=== PATIENT | female | born 1960 | race Hispanic/Latino ===

== ENCOUNTER 2016-11-09 18:37 | Emergency (ER) | payer MEDICAID ==
[2016-11-09 18:37] VITALS: BMI 30.4
[2016-11-09 18:45] VITALS: BP 121/72; PULSE 62; RESP 16; TEMP 98.9; O2SAT 94
[2016-11-09] MEDS ORDERED: Tobramycin 0.3% OPHT SOLN OS STA (18:54)
[2016-11-09] MEDS ORDERED: TDAP Vaccine 0.5 mL Syr IM ONE (18:55)
--- NOTE | 2016-11-09 18:58 | ED PDOC ---
Arrival/HPI - General Chief Complaint: Eye Problem Time Seen by Provider: 11/09/16 18:39 Historian: Patient - History of Present Illness Narrative History of Present Illness (Text): 11/09/16 18:55 56yo female present with complaint of right eye redness, tearing, pain and photophobia x 3days. Notes that symptoms started after she accidentally poked her eye with a kanwal pin. states she came to ED today because of the persistent pain. Denies visual acuity change. Note up to date with her TD booster. Past Medical History - Provider Review Nursing Documentation Reviewed: Yes - Past History Past History: Non-Contributing - Infectious Disease Hx of Infectious Diseases: None - Tetanus Immunization Tetanus Immunization: Unknown - Reproductive Menopause: Yes - Cardiac Hx Hypertension: Yes Hx Pacemaker: No - Pulmonary Hx Chronic Obstructive Pulmonary Disease (COPD): Yes - Neurological Hx Paralysis: No - HEENT Hx HEENT Disorder: No - Renal Hx Renal Disorder: No - Endocrine/Metabolic Hx Endocrine Disorders: No - Hematological/Oncological Hx Blood Transfusions: No Hx Blood Transfusion Reaction: No - Integumentary Hx Dermatological Disorder: No - Musculoskeletal/Rheumatological Hx Musculoskeletal Disorders: Yes Other/Comment: Back problems - Gastrointestinal Hx Gastrointestinal Disorders: No - Genitourinary/Gynecological Hx Genitourinary Disorders: No - Psychiatric Hx Depression: Yes Hx Emotional Abuse: No Hx Physical Abuse: No Hx Substance Use: No - Surgical History Other/Comment: Laminectomy - Anesthesia Hx Anesthesia: Yes Hx Anesthesia Reactions: No Hx Malignant Hyperthermia: No - Suicidal Assessment Feels Threatened In Home Enviroment: No Family/Social History - Physician Review Nursing Documentation Reviewed: Yes Family/Social History: Unknown Family HX Smoking Status: Heavy Smoker > 10 Cigarettes Daily Hx Alcohol Use: No Hx Substance Use: No Hx Substance Use Treatment: No Allergies/Home Meds Allergies/Adverse Reactions: Allergies No Known Allergies Allergy (Verified 11/09/16 18:39) Home Medications: Home Meds Medication Instructions Recorded Confirmed Morphine [Morphine Extended 100 mg PO BID 01/10/15 11/09/16 Release Tab] Bisoprolol/HCTZ [Ziac 10-6.25 mg] 1 tab PO QAM 03/11/15 11/09/16 Tolterodine [Detrol] 2 mg PO BID 03/11/15 11/09/16 Omeprazole [Omeprazole] 40 mg PO DAILY 11/09/16 11/09/16 Oxycodone HCl [Roxicodone] 1 tab PO Q4 PRN 11/09/16 11/09/16 Review of Systems - Physician Review All systems were reviewed & negative as marked: Yes - Review of Systems Constitutional: Normal Eyes: Photophobia, Eye Pain (Right eye) ENT: Normal Respiratory: Normal Cardiovascular: Normal Gastrointestinal: Normal Genitourinary Female: Normal Musculoskeletal: Normal Skin: Normal Neurological: Normal Endocrine: Normal Hemo/Lymphatic: Normal Psychiatric: Normal Physical Exam Vital Signs Reviewed: Yes Vital Signs Temp Pulse Resp BP Pulse Ox 11/09/16 18:41 98.9 F 62 16 121/72 94 L Temperature: Afebrile Blood Pressure: Normal Pulse: Regular Respiratory Rate: Normal Appearance: Positive for: Well-Appearing, Non-Toxic, Comfortable Pain Distress: None Mental Status: Positive for: Alert and Oriented X 3 - Systems Exam Head: Present: Atraumatic, Normocephalic Pupils: Present: PERRL Extroacular Muscles: Present: EOMI Conjunctiva: Present: Icteric (Red - right eye), Other (Small florescin uptake noted on cnetral cornea) Mouth: Present: Moist Mucous Membranes Neck: Present: Normal Range of Motion Respiratory/Chest: Present: Clear to Auscultation, Good Air Exchange. No: Respiratory Distress, Accessory Muscle Use Cardiovascular: Present: Regular Rate and Rhythm, Normal S1, S2. No: Murmurs Abdomen: Present: Normal Bowel Sounds. No: Tenderness, Distention, Peritoneal Signs Back: Present: Normal Inspection Upper Extremity: Present: Normal Inspection. No: Cyanosis, Edema Lower Extremity: Present: Normal Inspection. No: Edema Neurological: Present: GCS=15, CN II-XII Intact, Speech Normal Skin: Present: Warm, Dry, Normal Color. No: Rashes Psychiatric: Present: Alert, Oriented x 3, Normal Insight, Normal Concentration Disposition/Present on Arrival - Present on Arrival Any Indicators Present on Arrival: No History of DVT/PE: No History of Uncontrolled Diabetes: No Urinary Catheter: No History of Decub. Ulcer: No History Surgical Site Infection Following: None - Disposition Have Diagnosis and Disposition been Completed?: Yes Diagnosis: Corneal abrasion Disposition: HOME/ ROUTINE Disposition Time: 19:00 Patient Plan: Discharge Condition: STABLE Discharge Instructions (ExitCare): Corneal Abrasion (ED) Additional Instructions: Follow up with your Doctor/Therapeutic Massage Technician Return to ED for any new or worsening symptoms Referrals: Rick Navarrete MD [Staff Provider] - Follow up with primary
== END 2016-11-09 19:27 | disposition home or self-care (01) ==
LOC: ED 18:37
DX: S05.01XA Injury of conjunctiva and corneal abrasion without foreign body, right eye, initial encounter (principal); W22.8XXA Striking against or struck by other objects, initial encounter; Z23 Encounter for immunization

== ENCOUNTER 2017-05-18 18:41 | Emergency (ER) | payer MEDICAID ==
--- NOTE | 2017-05-18 18:54 | ED PDOC ---
Arrival/HPI - General Time Seen by Provider: 05/18/17 18:44 Historian: Patient - History of Present Illness Narrative History of Present Illness (Text): 05/18/17 18:51 57yo female with PMHx of COPD biba for complaint of nonproductive cough and SOB. She reports 4days history of cough, cold symptoms. states her PMD called in Promethazine for her to day. Her albuterol inhaler broke. She is also a cigarette smoker. Denies sick contact, travel, fever. She have never been intubated. She is not steroid dependent. Never admitted for COPD. Past Medical History - Provider Review Nursing Documentation Reviewed: Yes - Past History Past History: Non-Contributing - Infectious Disease Hx of Infectious Diseases: None - Tetanus Immunization Tetanus Immunization: Unknown - Cardiac Hx Hypertension: Yes Hx Pacemaker: No - Pulmonary Hx Chronic Obstructive Pulmonary Disease (COPD): Yes - Neurological Hx Paralysis: No - HEENT Hx HEENT Disorder: No - Renal Hx Renal Disorder: No - Endocrine/Metabolic Hx Endocrine Disorders: No - Hematological/Oncological Hx Blood Transfusions: No Hx Blood Transfusion Reaction: No - Integumentary Hx Dermatological Disorder: No - Musculoskeletal/Rheumatological Hx Musculoskeletal Disorders: Yes Other/Comment: Back problems - Gastrointestinal Hx Gastrointestinal Disorders: No - Genitourinary/Gynecological Hx Genitourinary Disorders: No - Psychiatric Hx Depression: Yes Hx Emotional Abuse: No Hx Physical Abuse: No Hx Substance Use: No - Surgical History Other/Comment: Laminectomy - Anesthesia Hx Anesthesia: Yes Hx Anesthesia Reactions: No Hx Malignant Hyperthermia: No - Suicidal Assessment Feels Threatened In Home Enviroment: No Family/Social History - Physician Review Nursing Documentation Reviewed: Yes Family/Social History: Unknown Family HX Smoking Status: Heavy Smoker > 10 Cigarettes Daily Hx Alcohol Use: No Hx Substance Use: No Hx Substance Use Treatment: No Allergies/Home Meds Allergies/Adverse Reactions: Allergies No Known Allergies Allergy (Verified 11/09/16 18:39) Home Medications: Home Meds Medication Instructions Recorded Confirmed Morphine [Morphine Extended 100 mg PO BID 01/10/15 11/09/16 Release Tab] Bisoprolol/HCTZ [Ziac 10-6.25 mg] 1 tab PO QAM 03/11/15 11/09/16 Tolterodine [Detrol] 2 mg PO BID 03/11/15 11/09/16 Omeprazole [Omeprazole] 40 mg PO DAILY 11/09/16 11/09/16 Oxycodone HCl [Roxicodone] 1 tab PO Q4 PRN 11/09/16 11/09/16 Review of Systems - Physician Review All systems were reviewed & negative as marked: Yes - Review of Systems Constitutional: Normal Eyes: Normal ENT: Normal Respiratory: SOB, Cough. absent: Sputum, Wheezing Cardiovascular: Normal Gastrointestinal: Normal Genitourinary Female: Normal Musculoskeletal: Normal Skin: Normal Neurological: Normal Endocrine: Normal Hemo/Lymphatic: Normal Psychiatric: Normal Physical Exam Vital Signs Reviewed: Yes Vital Signs Temp Pulse Resp BP Pulse Ox 05/18/17 20:57 98.2 F 68 18 130/82 98 05/18/17 19:15 98.1 F 69 18 120/82 99 05/18/17 18:57 98.1 F 69 18 120/82 99 Temperature: Afebrile Blood Pressure: Normal Pulse: Regular Respiratory Rate: Normal Appearance: Positive for: Well-Appearing, Non-Toxic, Comfortable Pain Distress: None Mental Status: Positive for: Alert and Oriented X 3 - Systems Exam Head: Present: Atraumatic, Normocephalic Pupils: Present: PERRL Extroacular Muscles: Present: EOMI Conjunctiva: Present: Normal Mouth: Present: Moist Mucous Membranes Neck: Present: Normal Range of Motion Respiratory/Chest: Present: Clear to Auscultation, Good Air Exchange, Wheezes ( Mild expiratory wheeze at the bases). No: Respiratory Distress, Accessory Muscle Use, Decreased Breath Sounds, Retracting, Rhonchi Cardiovascular: Present: Regular Rate and Rhythm, Normal S1, S2. No: Murmurs Abdomen: Present: Normal Bowel Sounds. No: Tenderness, Distention, Peritoneal Signs Back: Present: Normal Inspection Upper Extremity: Present: Normal Inspection. No: Cyanosis, Edema Lower Extremity: Present: Normal Inspection. No: Edema Neurological: Present: GCS=15, CN II-XII Intact, Speech Normal Skin: Present: Warm, Dry, Normal Color. No: Rashes Psychiatric: Present: Alert, Oriented x 3, Normal Insight, Normal Concentration Medical Decision Making ED Course and Treatment: 05/18/17 20:20 On re evaluation pt notes she feels much better. She was not hypoxic in ED. she was talking in full sentence without distress. Lung was CTA b/l. Pt was counselled on smoking cessation Lab was unremarkable. CXR NAD Pt will be DC home with a rx of Albuterol and prednisone. Referred to her PMD. TRT ED for any new or worsening symptoms. - Lab Interpretations Lab Results: 05/18/17 19:35 05/18/17 19:35 Lab Results 05/18/17 19:35: POC Glucose (mg/dL) 118 H 05/18/17 19:35: Sodium 140, Potassium 3.5 L, Chloride 105, Carbon Dioxide 29, Anion Gap 9 L, BUN 13, Creatinine 0.9, Est GFR ( Amer) > 60, Est GFR (Non -Af Amer) > 60, Random Glucose 125 H, Calcium 9.2, Total Bilirubin 0.2, AST 22, ALT 25, Alkaline Phosphatase 52, Total Protein 6.4, Albumin 3.7, Globulin 2.7, Albumin/Globulin Ratio 1.4 05/18/17 19:35: WBC 6.6, RBC 4.69, Hgb 16.0, Hct 47.4, MCV 101.1, MCH 34.1, MCHC 33.8, RDW 14.5, Plt Count 119 L, MPV 11.1 H, Gran % 66.0, Lymph % (Auto) 25.2, [place] % (Auto) 6.1 H, Eos % (Auto) 2.4, Baso % (Auto) 0.3, Gran # 4.34, Lymph # 1.7, [place] # 0.4, Eos # 0.2, Baso # 0.02 - RAD Interpretation Radiology Orders: 05/18/17 19:16 CHEST PORTABLE [RAD] Stat - Medication Orders Current Medication Orders: Discontinued Medications Albuterol/Ipratropium (Duoneb 3 Mg/0.5 Mg (3 Ml) Ud) 3 ml IH STAT STA Stop: 05/18/17 19:15 Last Admin: 05/18/17 19:46 Dose: 3 ml Albuterol/Ipratropium (Duoneb 3 Mg/0.5 Mg (3 Ml) Ud) 3 ml IH STAT STA Stop: 05/18/17 19:41 Last Admin: 05/18/17 20:10 Dose: 3 ml Albuterol/Ipratropium (Duoneb 3 Mg/0.5 Mg (3 Ml) Ud) 3 ml IH STAT STA Stop: 05/18/17 20:01 Last Admin: 05/18/17 20:38 Dose: 3 ml Azithromycin (Zithromax) 500 mg PO STAT STA PRN Reason: Protocol Stop: 05/18/17 20:29 Last Admin: 05/18/17 20:41 Dose: 500 mg Methylprednisolone (Solu-Medrol) 125 mg IVP STAT STA Stop: 05/18/17 19:16 Last Admin: 05/18/17 19:45 Dose: 125 mg IVP Administration Document 05/18/17 19:45 IT (Rec: 05/18/17 19:45 IT [id number]) Charges for Administration # of IVP Administrations 1 Disposition/Present on Arrival - Present on Arrival Any Indicators Present on Arrival: No History of DVT/PE: No History of Uncontrolled Diabetes: No Urinary Catheter: No History Surgical Site Infection Following: None - Disposition Have Diagnosis and Disposition been Completed?: Yes Diagnosis: COPD exacerbation Disposition: HOME/ ROUTINE Disposition Time: 21:00 Condition: STABLE Discharge Instructions (ExitCare): COPD (Chronic Obstructive Pulmonary Disease ) (ED) Additional Instructions: Follow up with your doctor Return to ED for any new or worsening symptoms Prescriptions: Albuterol HFA [Ventolin HFA 90 mcg/actuation (8 g)] 2 puff IH [id number] #1 puff Azithromycin [Zithromax] 250 mg PO DAILY #4 tab Prednisone 50 mg PO DAILY #5 tablet Referrals: Carrol Iglesias, [Primary Care Provider] - Follow up with primary [facility] [place] [Outside] - Follow up with primary Forms: [employer] ([place])
[2017-05-18 19:04] VITALS: RESP 18; BMI 35.0
[2017-05-18] MEDS ORDERED: Albuterol-Ipratrop 3 mg / 0.5 (3 ml) UD IH STA ×3 (19:14→20:00)
[2017-05-18 19:56] LABS: BASO # 0.02 K/mm3 (0.0-2.0); BASO % 0.3 % (0.0-3.0); EOS # 0.2 (0.0-0.7); EOS % 2.4 % (1.5-5.0); GRAN # 4.34 (1.4-6.5); LYMPH # 1.7 (1.2-3.4); LYMPH % 25.2 % (22.0-35.0); MEAN CELL VOLUME 101.1 fl (80.0-105.0); MEAN CORPUSCULAR HEMOGLOBIN 34.1 pg (25.0-35.0); MEAN CORPUSCULAR HGB CONC 33.8 g/dl (31.0-37.0); MEAN PLATELET VOLUME 11.1 fl (7.0-11.0); MONO # 0.4 (0.1-0.6); MONO % 6.1 % (1.0-6.0); RBC 4.69 10^6/uL (3.5-6.1); RED CELL DISTRIBUTION WIDTH 14.5 % (11.5-14.5); WHITE BLOOD COUNT 6.6 10^3/ul (4.5-11.0)
[2017-05-18 20:14] LABS: ALB/GLOB RATIO 1.4 (1.1-1.8); ALBUMIN 3.7 g/dL (3.0-4.8); ALT/SGPT 25 U/L (7-56); AST/SGOT 22 U/L (14-36); BLOOD UREA NITROGEN 13 mg/dL (7-21); CALCIUM 9.2 mg/dL (8.4-10.5); GFR AFRICAN-AMERICAN > 60; GFR NON-AFRICAN AMERICAN > 60
[2017-05-18 21:03] VITALS: BP 130/82; PULSE 68; TEMP 98.2; O2SAT 98
--- NOTE | 2017-05-19 13:25 | RAD ---
HISTORY: cough COMPARISON: Comparison chest dated 01/10/2015. FINDINGS: LUNGS: Study is limited due to apical lordotic patient positioning. PLEURA: No significant pleural effusion identified, no pneumothorax apparent. CARDIOVASCULAR: Normal. OSSEOUS STRUCTURES: No significant abnormalities. VISUALIZED UPPER ABDOMEN: Normal. OTHER FINDINGS: None. IMPRESSION: Limited study due to apical lordotic patient positioning. No infiltrates.
== END 2017-05-18 21:02 | disposition home or self-care (01) ==
LOC: ED 18:41
DX: J44.1 Chronic obstructive pulmonary disease with (acute) exacerbation (principal); I10 Essential (primary) hypertension; F17.210 Nicotine dependence, cigarettes, uncomplicated
CPT/HCPCS: 71010; 80053; 82948; 85025; 94640; 96374; 99285; J2930

== ENCOUNTER 2017-10-15 15:21 | Inpatient (IN) | payer MEDICAID ==
[2017-10-15 15:36] VITALS: BMI 36.0
[2017-10-15] MEDS ORDERED: Sodium Chloride 0.9% 1,000 ML IV STA (15:44)
[2017-10-15] MEDS ORDERED: Morphine 4 mg/ml ISec IVP STA (15:44)
--- NOTE | 2017-10-15 15:47 | ED PDOC ---
Arrival/HPI - General Chief Complaint: Chest Pain Time Seen by Provider: 10/15/17 15:31 Historian: Patient - History of Present Illness Narrative History of Present Illness (Text): 10/15/17 15:43 57 year old female smoker, with no significant past medical history, who presents to the emergency department complaining of chest pain upon exertion since . Patient notes she saw a gas meter installer a year ago, who stated she has a leaky valve. Patient saw Dr. Henning last week, who gave her nitroglcerin for the pain and said to visit the emergency department if pain occurs. Patient denies any fever, chills, shortness of breath, nausea, vomiting , diarrhea, back pain, neck pain, headache, dizziness, or any other complaints. Time/Duration: < month (6 months) Past Medical History - Provider Review Nursing Documentation Reviewed: Yes - Past History Past History: Non-Contributing - Infectious Disease Hx of Infectious Diseases: None - Tetanus Immunization Tetanus Immunization: Unknown - Cardiac Hx Hypertension: Yes Hx Pacemaker: No - Pulmonary Hx Chronic Obstructive Pulmonary Disease (COPD): Yes - Neurological Hx Paralysis: No - HEENT Hx HEENT Disorder: No - Renal Hx Renal Disorder: No - Endocrine/Metabolic Hx Endocrine Disorders: No - Hematological/Oncological Hx Blood Transfusions: No Hx Blood Transfusion Reaction: No - Integumentary Hx Dermatological Disorder: No - Musculoskeletal/Rheumatological Hx Musculoskeletal Disorders: Yes Hx Back Pain: Yes Other/Comment: Back problems - Gastrointestinal Hx Gastrointestinal Disorders: No - Genitourinary/Gynecological Hx Genitourinary Disorders: No - Psychiatric Hx Depression: Yes Hx Emotional Abuse: No Hx Physical Abuse: No Hx Substance Use: No - Surgical History Other/Comment: Laminectomy - Anesthesia Hx Anesthesia: Yes Hx Anesthesia Reactions: No Hx Malignant Hyperthermia: No - Suicidal Assessment Feels Threatened In Home Enviroment: No Family/Social History - Physician Review Nursing Documentation Reviewed: Yes Family/Social History: Unknown Family HX Smoking Status: Heavy Smoker > 10 Cigarettes Daily Hx Alcohol Use: No Hx Substance Use: No Hx Substance Use Treatment: No Allergies/Home Meds Allergies/Adverse Reactions: Allergies No Known Allergies Allergy (Verified 11/09/16 18:39) Home Medications: Home Meds Medication Instructions Recorded Confirmed Morphine [Morphine Extended 100 mg PO BID 01/10/15 10/15/17 Release Tab] Bisoprolol/HCTZ [Ziac 10-6.25 mg] 1 tab PO QAM 03/11/15 10/15/17 Tolterodine [Detrol] 2 mg PO BID 03/11/15 10/15/17 Omeprazole [Omeprazole] 40 mg PO DAILY 11/09/16 10/15/17 Oxycodone HCl [Roxicodone] 1 tab PO Q4 PRN 11/09/16 10/15/17 Review of Systems - Physician Review All systems were reviewed & negative as marked: Yes - Review of Systems Constitutional: Normal Eyes: Normal ENT: Normal Respiratory: Normal. absent: SOB, Cough Cardiovascular: Chest Pain Gastrointestinal: Normal. absent: Abdominal Pain, Diarrhea, Nausea, Vomiting Genitourinary Female: Normal. absent: Dysuria, Frequency, Hematuria, Urine Output Changes Musculoskeletal: Normal. absent: Back Pain, Neck Pain Skin: Normal. absent: Rash Neurological: Normal. absent: Headache, Dizziness, Focal Weakness, Gait Changes Endocrine: Normal Hemo/Lymphatic: Normal Psychiatric: Normal Physical Exam Vital Signs Reviewed: Yes Vital Signs Temp Pulse Resp BP Pulse Ox 10/15/17 15:46 98.2 F 64 18 123/75 95 10/15/17 15:35 97.8 F 68 16 123/75 95 Temperature: Afebrile Blood Pressure: Normal Pulse: Regular Respiratory Rate: Normal Appearance: Positive for: Well-Appearing, Non-Toxic, Comfortable Pain Distress: None Mental Status: Positive for: Alert and Oriented X 3 - Systems Exam Head: Present: Atraumatic, Normocephalic Pupils: Present: PERRL Extroacular Muscles: Present: EOMI Conjunctiva: Present: Normal Mouth: Present: Moist Mucous Membranes Neck: Present: Normal Range of Motion Respiratory/Chest: Present: Clear to Auscultation, Good Air Exchange. No: Respiratory Distress, Accessory Muscle Use Cardiovascular: Present: Regular Rate and Rhythm, Normal S1, S2. No: Murmurs Abdomen: No: Tenderness, Distention, Peritoneal Signs Back: Present: Normal Inspection Upper Extremity: Present: Normal Inspection. No: Cyanosis, Edema Lower Extremity: Present: Normal Inspection. No: Edema Neurological: Present: GCS=15, CN II-XII Intact, Speech Normal Skin: Present: Warm, Dry, Normal Color. No: Rashes Psychiatric: Present: Alert, Oriented x 3, Normal Insight, Normal Concentration Medical Decision Making ED Course and Treatment: 10/15/17 15:49 Impression: 57 year old female presents to the emergency department complaining of chest pain upon exertion. Plan: -- Labs -- Chest X-ray -- Aspirin -- Morphine -- Zofran -- Sodium Chloride -- Reassess and disposition Progress Notes: EKG reviewed, shows NSR at [address]/T wave changes. 10/15/17 17:33 Chest X-ray reviewed, shows: LUNGS: There appears to be some minimal curvilinear atelectasis in both mid lung mcintosh. PLEURA: No significant pleural effusion identified, no pneumothorax apparent. CARDIOVASCULAR: Normal. OSSEOUS STRUCTURES: No significant abnormalities. VISUALIZED UPPER ABDOMEN: Normal. OTHER FINDINGS: None. IMPRESSION: Minimal atelectasis both mid lung mcintosh. - Lab Interpretations Lab Results: 10/15/17 16:25 10/15/17 16:25 Lab Results 10/15/17 16:25: Sodium 144, Potassium 4.2, Chloride 104, Carbon Dioxide 29, Anion Gap 15, BUN 14, Creatinine 0.8, Est GFR ( Amer) > 60, Est GFR (Non- Af Amer) > 60, Random Glucose 114 H, Calcium 9.3, Total Bilirubin 0.3, AST 17, ALT 23, Alkaline Phosphatase 61, Lactate Dehydrogenase 521, Total Creatine Kinase 38, Troponin I < 0.01, Total Protein 6.8, Albumin 4.2, Globulin 2.6, Albumin/Globulin Ratio 1.6 10/15/17 16:25: WBC 6.4, RBC 5.01, Hgb 16.8 H, Hct 49.0 H, MCV 97.8 D, MCH 33.5 , MCHC 34.3, RDW 14.1, Plt Count 135, MPV 10.9, Gran % 60.3, Lymph % (Auto) 30.2 , [place] % (Auto) 7.2 H, Eos % (Auto) 2.0, Baso % (Auto) 0.3, Gran # 3.83, Lymph # (Auto) 1.9, [place] # (Auto) 0.5, Eos # (Auto) 0.1, Baso # (Auto) 0.02 - RAD Interpretation Radiology Orders: 10/15/17 15:44 CHEST PORTABLE [RAD] Stat - Medication Orders Current Medication Orders: Discontinued Medications Aspirin (Aspirin Chewable) 324 mg PO STAT STA Stop: 10/15/17 15:45 Last Admin: 10/15/17 16:27 Dose: 324 mg Sodium Chloride (Sodium Chloride 0.9%) 1,000 mls @ 999 mls/hr IV .Q1H1M STA Stop: 10/15/17 16:44 Last Admin: 10/15/17 16:28 Dose: 999 mls/hr eMAR Start Stop Document 10/15/17 16:28 MS (Rec: 10/15/17 16:28 MS [id number]) Intravenous Solution Start Date 10/15/17 Start Time 16:28 Morphine Sulfate (Morphine) 4 mg IVP STAT STA Stop: 10/15/17 15:45 Last Admin: 10/15/17 16:27 Dose: 4 mg MAR Pain Assessment Document 10/15/17 16:27 MS (Rec: 10/15/17 16:28 MS [id number]) Pain Reassessment Is this a pain reassessment? No Sleep Is patient sleeping during reassessment? No Presence of Pain Presence of Pain Yes Pain Scale Used Pain Scale Used Numeric Location Pain Location Body Site Chest Description Description Constant Intensity of Pain at present 10 Pain Behavior Moaning Rubbing Site VS Changes IVP Administration Document 10/15/17 16:27 MS (Rec: 10/15/17 16:28 MS [id number]) Charges for Administration # of IVP Administrations 1 Ondansetron HCl (Zofran Inj) 4 mg IVP STAT STA Stop: 10/15/17 15:45 Last Admin: 10/15/17 16:27 Dose: 4 mg IVP Administration Document 10/15/17 16:27 MS (Rec: 10/15/17 16:27 MS [id number]) Charges for Administration # of IVP Administrations 1 - Scribe Statement The provider has reviewed the documentation as recorded by the Scribe Loni Gamez All medical record entries made by the Scribe were at my direction and personally dictated by me. I have reviewed the chart and agree that the record accurately reflects my personal performance of the history, physical exam, medical decision making, and the department course for this patient. I have also personally directed, reviewed, and agree with the discharge instructions and disposition. Disposition/Present on Arrival - Present on Arrival Any Indicators Present on Arrival: No History of DVT/PE: No History of Uncontrolled Diabetes: No Urinary Catheter: No History of Decub. Ulcer: No History Surgical Site Infection Following: None - Disposition Have Diagnosis and Disposition been Completed?: Yes Diagnosis: Angina effort, Chest pain Disposition: HOSPITALIZED Disposition Time: 17:27 Patient Plan: Admission, Telemetry Patient Problems: Current Active Problems Problem Status Onset Angina effort Acute Chest pain Acute Condition: GOOD Discharge Instructions (ExitCare): Chest Pain (ED) Referrals: Randall Haque MD [Primary Care Provider] - Follow up with primary Forms: [employer] ([place])
[2017-10-15 16:41] LABS: BASO # 0.02 K/mm3 (0.0-2.0); BASO % 0.3 % (0.0-3.0); EOS # 0.1 (0.0-0.7); GRAN # 3.83 (1.4-6.5); GRAN % 60.3 % (50.0-68.0); HEMOGLOBIN 16.8 g/dL (12.0-16.0); LYMPH # 1.9 (1.2-3.4); LYMPH % 30.2 % (22.0-35.0); MEAN CELL VOLUME 97.8 fl (80.0-105.0); MEAN CORPUSCULAR HEMOGLOBIN 33.5 pg (25.0-35.0); MEAN CORPUSCULAR HGB CONC 34.3 g/dl (31.0-37.0); MEAN PLATELET VOLUME 10.9 fl (7.0-11.0); MONO # 0.5 (0.1-0.6); MONO % 7.2 % (1.0-6.0); RBC 5.01 10^6/uL (3.5-6.1); RED CELL DISTRIBUTION WIDTH 14.1 % (11.5-14.5); WHITE BLOOD COUNT 6.4 10^3/ul (4.5-11.0)
[2017-10-15 16:48] LABS: ALB/GLOB RATIO 1.6 (1.1-1.8); ALBUMIN 4.2 g/dL (3.0-4.8); ALT/SGPT 23 U/L (7-56); AST/SGOT 17 U/L (14-36); BLOOD UREA NITROGEN 14 mg/dL (7-21); CALCIUM 9.3 mg/dL (8.4-10.5); GFR AFRICAN-AMERICAN > 60; GFR NON-AFRICAN AMERICAN > 60
[2017-10-15 17:00] LABS: TROPONIN I < 0.01 ng/mL
--- NOTE | 2017-10-15 17:19 | RAD ---
HISTORY: Chest Pain, Exertional, Angina COMPARISON: Comparison made with chest radiograph dated 05/18/2017. . Note that the study is slightly limited due to mild apical lordotic patient positioning. FINDINGS: LUNGS: There appears to be some minimal curvilinear atelectasis in both mid lung mcintosh. PLEURA: No significant pleural effusion identified, no pneumothorax apparent. CARDIOVASCULAR: Normal. OSSEOUS STRUCTURES: No significant abnormalities. VISUALIZED UPPER ABDOMEN: Normal. OTHER FINDINGS: None. IMPRESSION: Minimal atelectasis both mid lung mcintosh.
[2017-10-15 17:54] VITALS: O2SAT 96
[2017-10-15 18:16] LABS: INR 0.91 (0.93-1.08); PROTHROMBIN TIME 10.3 SECONDS (9.4-12.5)
[2017-10-15] MEDS ORDERED: oxyCODONE 30 mg Immediate Release Tab PO PRN (21:31)
[2017-10-15] MEDS ORDERED: Pneumococcal 23-Valent Vaccine IM ONE (23:13)
--- NOTE | 2017-10-16 00:32 | CP.PCM.PN ---
Subjective - Date & Time of Evaluation Date of Evaluation: 10/16/17 Time of Evaluation: 00:14 - Subjective Subjective: S: It was requested to get an order of nicotine patch. Patient was seen at bedside. Has no complaints now. No chest pain. Medical record was reviewed. O: Last Vital Signs 3 Temp 97.3 F L 10/15/17 23:02 Pulse 91 H 10/15/17 23:02 Resp 19 10/15/17 23:02 BP 134/71 10/15/17 23:02 Pulse Ox 96 10/15/17 18:40 Awake, alert, not in distress. LUNGS:Normal breathing pattern A:Tobacco dependence. P:Nicotine patch as ordered. Objective - Vital Signs/Intake and Output Vital Signs (last 24 hours): Temp Pulse Resp BP Pulse Ox 97.3 F L 91 H 19 134/71 96 10/15/17 23:02 10/15/17 23:02 10/15/17 23:02 10/15/17 23:02 10/15/17 18:40 - Medications Medications: Current Medications Albuterol Sulfate (Albuterol 0.083% Inhal Vidhi (2.5 Mg/3 Ml) Ud) 2.5 mg IH [id number] EVE Morphine Sulfate (Morphine Extended Release Tab) 100 mg PO BID EVE Nicotine (Nicoderm Cq) 1 patch TD DAILY [facility] Non-Formulary Medication (Bisoprolol/Hctz [Ziac 10-6.25 Mg]) 1 tab PO QAM EVE Oxycodone HCl (Oxycodone Immediate Release Tab) 30 mg PO Q4 PRN PRN Reason: Pain, severe (8-10) Tolterodine Tartrate (Detrol) 2 mg PO BID EVE - Labs Labs: PT 10.3 SECONDS (9.4-12.5) 10/15/17 16:25 INR 0.91 (0.93-1.08) L 10/15/17 16:25
[2017-10-16 01:35] LABS: TROPONIN I < 0.01 ng/mL
[2017-10-16] MEDS ORDERED: Albuterol 0.083% Inhal Sol (2.5 mg/3 mL) UD IH SCH (02:00)
[2017-10-16 07:00] LABS: HEMOGLOBIN 16.3 g/dL (12.0-16.0); MEAN CELL VOLUME 98.6 fl (80.0-105.0); MEAN CORPUSCULAR HEMOGLOBIN 32.9 pg (25.0-35.0); MEAN CORPUSCULAR HGB CONC 33.4 g/dl (31.0-37.0); RBC 4.95 10^6/uL (3.5-6.1); RED CELL DISTRIBUTION WIDTH 14.5 % (11.5-14.5); WHITE BLOOD COUNT 5.4 10^3/ul (4.5-11.0)
[2017-10-16 07:25] LABS: ALB/GLOB RATIO 1.6 (1.1-1.8); ALBUMIN 3.9 g/dL (3.0-4.8); ALT/SGPT 21 U/L (7-56); AST/SGOT 16 U/L (14-36); BLOOD UREA NITROGEN 15 mg/dL (7-21); CALCIUM 8.8 mg/dL (8.4-10.5); GFR AFRICAN-AMERICAN > 60; GFR NON-AFRICAN AMERICAN > 60
[2017-10-16] MEDS ORDERED: Morphine 30 mg SR Tab PO PRN (08:35)
[2017-10-16] MEDS ORDERED: oxyCODONE 30 mg Immediate Release Tab PO PRN (08:41)
[2017-10-16] MEDS ORDERED: Phenylephrine 10 mg/ml Inj ONE (08:51)
[2017-10-16] MEDS ORDERED: Lidocaine 2% Inj (20ml) ONE (08:51)
[2017-10-16] MEDS ORDERED: Midazolam 2 MG/2 ML VIAL ONE ×2 (08:52→09:21)
[2017-10-16] MEDS ORDERED: Verapamil 2 ML ONE (08:52)
[2017-10-16] MEDS ORDERED: Nitroglycerin 50mg in D5W 50 MG/250 ML BOTTLE IV ONE (08:53)
[2017-10-16] MEDS ORDERED: Iodixanol 320 MG/ML 100 ML BOTTLE IV ONE (08:53)
[2017-10-16] MEDS ORDERED: Iohexol 350mgl/ml 50 ML ONE (08:53)
[2017-10-16] MEDS ORDERED: Iodixanol 320 MG/ML 200 ML BOTTLE IV ONE (08:53)
[2017-10-16 09:31] LABS: HDL CHOLESTEROL 47 mg/dL (29-60)
[2017-10-16 09:41] LABS: LDL CHOLESTEROL 102 mg/dL (0-129)
[2017-10-16] MEDS ORDERED: Morphine 30 mg SR Tab PO SCH (10:00)
[2017-10-16] MEDS ORDERED: Non Formulary Medication (Bisoprolol/Hctz [Ziac 10-6.25 Mg] 1 TAB) PO SCH (10:00)
[2017-10-16] MEDS ORDERED: Bacitracin 500 Units/gm Oint Foilpak UD TOP ONE (10:28)
[2017-10-16] MEDS ORDERED: Sodium Chloride 0.45% 1,000 ML IV SCH (10:30)
[2017-10-16 10:42] VITALS: RESP 18
--- NOTE | 2017-10-16 10:46 | CPOSTOP ---
DATE: 10/16/2017 CARDIOVASCULAR LAB POST PROCEDURE NOTE DICTATING PHYSICIAN: Von Kirkland MD. RETAIL TRAINING MANAGER: Rio Brewer, windmill technician. TYPE OF ANESTHESIA USED: Moderate conscious sedation. Total dose given 2 mg of Versed, 100 of fentanyl periodically started at 1 mg of Versed and 50 mcg of fentanyl. PRE-PROCEDURE DIAGNOSES: Unable angina, acute coronary syndrome. PROCEDURE PERFORMED: Left heart catheterization. FINDINGS: Nonobstructive coronary artery disease. FINAL DIAGNOSES: Nonobstructive coronary artery disease, single vessel disease. POST PROCEDURE CONDITION: Post procedure, the patient's condition is stable. VASCULAR ACCESS SITE: Left radial. CLOSURE DEVICE: TR Band. TOTAL RADIATION DOSE: 10,393.2 milligray unit. TOTAL FLUORO TIME: 7.5 minutes. RECOMMENDATION: Aggressive medical treatment, emphasis on weight reduction, complete cessation of smoking, modification of lifestyle. Von Kirkland MD MTDD
--- NOTE | 2017-10-16 12:07 | CARD ---
APPROVED REPORT Procedure(s) performed: Left Heart Catheterization HISTORY The patient is a 57 year-old female with a history of : chronic lung disease, tobacco history() : The patient is a current smoker , hypertension , Admitted with ACS, unstable angina. INDICATION The indication(s) include : palpitations, unstable angina , chest pain, dyspnea. CASE TECHNIQUE The patient was brought urgently to the Cardiac Catheterization Laboratory in a fasting state and was prepped and draped in a sterile manner. The left wrist was infiltrated with 2% Lidocaine subcutaneous anesthesia. A 6FR GLIDESPaymetric ACCESS KIT sheath was inserted into the left radial artery without difficulty. Coronary angiography was performed using coronary diagnostic catheters. The left coronary system was accessed and visualized with a Diagnostic ,5 Fr JL 4 catheter. The right coronary system was accessed and visualized with a Diagnostic ,6 Fr AR 1 catheter. The left ventricle was accessed and visualized with a 6 Fr AL 1 catheter. Left ventricular/Aortic Valve gradient assessed on pullback. Left ventriculogram was performed in [place] projection. Closure device was deployed with a Fr TR Band (Regular) without any complications. The patient tolerated the procedure well and there were no complications associated with the procedure. Vessel Analysis The patient's coronary anatomy is left dominant. The left main coronary artery is a medium size vessel with diffuse calcification noted throughout this vessel and without significant stenosis. There is a 20-30% stenosis in the distal segment. The left main bifurcates to the left anterior descending and circumflex. The left anterior descending artery is a medium size vessel with diffuse calcification noted throughout this vessel and without significant stenosis. The first diagonal branch is a small size vessel with diffuse calcification noted throughout this vessel and without significant stenosis. The circumflex artery is a large size vessel with diffuse calcification noted throughout this vessel and without significant stenosis. The first obtuse marginal branch is a large size vessel with diffuse calcification noted throughout this vessel and without significant stenosis. The second obtuse marginal branch is a small size vessel with diffuse calcification noted throughout this vessel and with significant stenosis. There is a 60-70% stenosis in the ostial segment. The third obtuse marginal branch is a medium size vessel with diffuse calcification noted throughout this vessel and without significant stenosis. The right coronary artery is a small size vessel with intimal irregularities and without significant stenosis. Could not be canulated, but non selective injection into cusp revealed No significant flow limiting stenosis. Left Ventricle The left ventricle is normal in size with normal contractility. There was no cardiomyopathy. The left ventricular ejection fraction is estimated to be 55-60%. The left ventricular end diastolic pressure is 15 mmHg. There was no gradient across the aortic valve upon pullback. Conclusion Non - obstructive CAD limited to Ostial OM2 60% stenosis, small calibre vessel Calcified Coronaried Preserved Lv Fx. Ef- 55-60%, EDP-215 mmof Hg. Recommendations Smoking Cessation Aggressive Medical TherapyCardiac Risk Reduction Program Weight Loss Reduction Program Echo to assess Valvular Fx CC; Dr. Allison Haque MD
[2017-10-16] MEDS ORDERED: Bacitracin 500 Units/gm Oint Foilpak UD ONE (12:53)
--- NOTE | 2017-10-16 14:48 | CARD ---
APPROVED REPORT EKG Measurement Heart [id number] NE 124P77 [id number] <Conclusion> Normal sinus rhythm Biatrial enlargement Cannot rule out Anterior infarct, age undetermined Abnormal ECG
[2017-10-16 16:34] VITALS: BP 129/77; PULSE 63; TEMP 98.3
--- NOTE | 2017-10-16 17:18 | HP ---
DATE: 10/16/2017 ADMITTING HISTORY AND PHYSICAL HISTORY OF PRESENT ILLNESS: The patient is a 57-year-old female who presents to the emergency room complaining of exertional angina. The patient states that for several weeks, she has been unable to walk. She has a crushing pressure in her chest. It is associated with shortness of breath, diaphoresis, at times radiates up to the neck. The patient was told to present to the emergency room 1 week ago. However, she had some personal affairs to take care of at home, which took longer than expected. So finally, this Sunday evening, the patient presented and is evaluated. She had been using sublingual nitroglycerin tablets, which was prescribed for her 1 week ago with some transient relief. PAST MEDICAL HISTORY: Positive for spinal stenosis, hypertension, overactive bladder, chronic low back pain, and anxiety. ALLERGIES: SHE HAS NO KNOWN MEDICAL ALLERGIES. SOCIAL HISTORY: She smokes a pack and half of cigarettes a day, is a nonalcoholic drinker. She has one daughter and two sons and is , but quite distant from her . MEDICATIONS: At the time of admission included, MS Contin, Percocet, Ziac 10 mg, Detrol 2 mg twice a day, ibuprofen 800 three times a day as needed, and Xanax 0.5 mg three times a day as needed. REVIEW OF SYSTEMS: Otherwise unremarkable. PHYSICAL EXAMINATION: GENERAL: The patient is awake, alert, and oriented. NECK: Supple with no lymphadenopathy and no goiter. LUNGS: Clear to auscultation and percussion. HEART: Regular. No murmurs are appreciated. ABDOMEN: Soft and nontender with no organomegaly. EXTREMITIES: Free of cyanosis, clubbing, or edema. NEUROLOGIC: The patient is awake, alert, and oriented with no focal neurological signs. LABORATORY STUDIES: Show the white blood cell count to be 6.4, hemoglobin and hematocrit of 16.8 and 49, platelet count is 135. Sodium is 144, potassium is 4.2. Blood urea nitrogen is 14, creatinine is 0.8. Glucose is 114. Her blood pressure is 123/75 with a heart rate of 68 and she is afebrile. Troponins are negative at 0.01. As per the ER notes, EKG showed no acute changes. However, the EKG itself could not be found in the chart this time. Chest x-ray shows minimal atelectasis bilaterally. So the patient is admitted with a strong sounding story for exertional angina, although laboratory studies are unremarkable. We are asking Dr. Kirkland and Dr. Schroeder to consult the patient for further cardiac evaluation and treatment. Randall Haque MD
--- NOTE | 2017-10-16 17:45 | CON ---
DATE: 10/16/2017 SERVICE: Cardiology. REASON FOR CONSULTATION: Unstable angina, acute coronary artery syndrome. BRIEF CLINICAL HISTORY: A 57-year-old obese female with active tobacco abuse, hypertension, came in with 1 week history of chest pain, dyspnea on exertion. They patient is very active, but recently 1 week, she was very short-winded, pressure in the chest and goes to the neck and jaw and then relieved by taking rest. The patient recently saw Dr. Haque, nitroglycerin was given and says if the chest pain gets worse, come into the emergency room. The patient came to the emergency room. She denies any chest pain at rest, but yesterday patient was walking with her grandson and got severely short of breath and was at [employer], so they had to get the wheelchair and get out from the [employer], so came to the emergency room. PAST MEDICAL HISTORY: Significant a stress test likely a year ago, mild leakiness of the valve, seen by Dr. Schroeder. Denies any chest pain at rest. Also past history significant for hypertension and also spasm of the bladder. SOCIAL HISTORY: Active tobacco abuse of a pack to and a half a day more than 30 years. Socially drinks. No history of substance abuse. CURRENT MEDICATIONS: The patient is taking Detrol 2 mg daily, oxycodone 1 mg daily, omeprazole 40 mg daily, morphine extended release 100 mg daily, bisoprolol 1 tablet daily, and Xanax 0.5 mg twice a day, and Ventolin inhaler. ALLERGIES: NO KNOWN DRUG ALLERGIES. FAMILY HISTORY: Significant for coronary artery disease. REVIEW OF SYSTEMS: As per HPI. PHYSICAL EXAMINATION: VITAL SIGNS: Temperature afebrile, heart rate 59, blood pressure 108/51. HEENT: PERRLA. Extraocular muscles intact. NECK: Supple. No carotid bruit or thyromegaly. CHEST: Clear to auscultation. HEART: S1 and S2, regular. ABDOMEN: Soft. EXTREMITIES: Clubbing and cyanosis negative. LABORATORY DATA: WBC 5.4, hemoglobin 16, hematocrit 48.8, platelet count 121. Chemistry shows sodium 144, potassium 4, chloride 105, carbon dioxide 28, anion gap of 15. BUN 15, creatinine 0.7. Troponin 0.01 x2 negative. INR 0.9. RECOMMENDATION: We will keep n.p.o., add troponin, lipid profile, TSH, hemoglobin A1c. Further recommendation will depend after hospital course, length of discussion. Patient agreed to proceed with cardiac catheterization, will load with aspirin, Plavix. Because of the severity and acuity of the unstable angina, we will try cardiac catheterization, also look previous cardiac workup if it is done lately. We will follow. In hospital, patient has most recent stress test done 3 years ago. Patient claimed that is last year, but a documented stress test on 01/26/2014, that shows normal myocardial perfusion study, ejection fraction 68%, done by Dr. Schroeder. As mentioned above, because of the acuity and severity of symptoms, we will consider cardiac catheterization for unstable angina. Further, I will load with aspirin, Plavix for further recommendations after cardiac catheterization. We will follow with you. Thank you Dr. Haque for providing us the opportunity in taking care of patient, Miladys Akhtar. Von Kirkland MD
--- NOTE | 2017-10-17 19:56 | DS ---
HISTORY OF PRESENT ILLNESS: This is a 57-year-old woman known to Dr. Randall Haque in the office who presented with classical angina symptoms, chest discomfort radiating up to the neck. She also reports some worsening shortness of breath and a history of reflux. Because of risk factors including tobacco use, she was admitted. Labs and troponins were done. She was taken to the label operator by Dr. Kirkland, workday financials consultant. The nonobstructive coronary artery disease was discovered and lifestyle modification as well as aggressive medical treatment were prescribed. She was discharged from the hospital on aspirin, a statin medication. So, follow up with us in the office. Resume her prior medicines. At that time, the benefits of the beta-kanchan will be considered. Inhalers were also prescribed, Symbicort. She has been counseled in tobacco cessation and a prescription was sent for proton pump inhibitor, omeprazole further worked up in the office as an outpatient. She will see us in the office in one week. FINAL DISCHARGE DIAGNOSES: 1. Noncardiac chest pain. 2. Chronic obstructive pulmonary disease. 3. Active tobacco use. 4. Gastroesophageal reflux disease/reflux. Celestino Haque MD
== END 2017-10-16 15:00 | disposition home or self-care (01) | DRG 124 ==
LOC: ED 15:21 → ERH 17:31 → 2RSO 18:54 → 2RNO 10-16 11:28
PROVIDERS: ADMIT Internal Medicine; ATTEND Internal Medicine
PROC: 4A023N7 Measurement of Cardiac Sampling and Pressure, Left Heart, Percutaneous Approach (ICD-10-PCS; principal; 2017-10-16)
PROC: B2151ZZ Fluoroscopy of Left Heart using Low Osmolar Contrast (ICD-10-PCS; 2017-10-16)
PROC: B2111ZZ Fluoroscopy of Multiple Coronary Arteries using Low Osmolar Contrast (ICD-10-PCS; 2017-10-16)
DX: I25.110 Atherosclerotic heart disease of native coronary artery with unstable angina pectoris (principal); J44.9 Chronic obstructive pulmonary disease, unspecified; I10 Essential (primary) hypertension; F17.210 Nicotine dependence, cigarettes, uncomplicated; N32.81 Overactive bladder; M48.00 Spinal stenosis, site unspecified; G89.29 Other chronic pain; E66.9 Obesity, unspecified; Z68.36 Body mass index [BMI] 36.0-36.9, adult

== ENCOUNTER 2018-01-15 10:08 | Emergency (ER) | payer MEDICAID ==
[2018-01-15 10:09] VITALS: BMI 36.0
[2018-01-15 10:34] VITALS: BP 121/73; TEMP 97.6
--- NOTE | 2018-01-15 11:13 | ED PDOC ---
Arrival/HPI - General Chief Complaint: Upper Extremity Problem/Injury Time Seen by Provider: 01/15/18 10:16 Historian: Patient - History of Present Illness Narrative History of Present Illness (Text): 01/15/18 11:01 CC: L shoulder pain HPI: Ms. Akhtar is a 57 year old female with a PMHx of chronic constipation , CAD (last echo showed EF 54.6%), overactive bladder, COPD, GERD, HTN, and spinal stenosis who presents with complaints of 1 week history of L shoulder pain. Patient describes the pain as sharp and 10/10 when she moves the arm; otherwise, patient denies pain when she keeps the shoulder still. Pain radiates into upper neck upon movement of the left shoulder. Patient endorses an inability to raise her pocketbook. The pain catches the patient's breath. Patient denies trauma to shoulder or recent changes in movement/activity. Patient reports that for the past 20 years, she can only find one position of comfort to sleep, lying on her Left side. Patient reports chronic cough, some leg swelling, and chronic constipation but denies chest pain, palpitations, vision changes, sore throat, dizziness, fevers , chills, nausea, vomiting, diarrhea. PMHx of chronic constipation, CAD (last echo showed EF 54.6%), overactive bladder, COPD, GERD, HTN, and spinal stenosis PSHx: failed back surgery in 1999, left neck sebaceous cyst removal, tubal ligation 1990 All: NKDA Social: 2 ppd smoker PMD; Dr. Keene Time/Duration: 1 week Symptom Onset: Gradual Symptom Course: Unchanged Quality: Stabbing Severity Level: 10 Past Medical History - Past History Past History: Non-Contributing - Infectious Disease Hx of Infectious Diseases: None - Tetanus Immunization Tetanus Immunization: Unknown - Reproductive Menopause: Yes - Cardiac Hx Cardiac Disorders: Yes Hx Hypertension: Yes Hx Pacemaker: No Hx Peripheral Edema: Yes (ble +1) Other/Comment: leaky valve dx 1 yr ago pt not sure which valve is leaking, chest pain on exertion since thankl2016, sob diaphoresis, recent episode in [facility] with 9 year old grandaughter pt felt like she stopped breathiing convinced pt to see dr estephania keene,and come to ed - Pulmonary Hx Chronic Obstructive Pulmonary Disease (COPD): Yes Other/Comment: chronic smokers cough - Neurological Hx Neurological Disorder: Yes Other/Comment: passed out at dinner table around kathe, 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 can't feel bottom of both feet, numbness to different areas of ble,from failed back sx 07/28/1999 - HEENT Hx HEENT Disorder: Yes Other/Comment: cellulitis periorbilal r eye, corneal abrasins and multiple scratches from "wood chips from playgrounds, and rubbing eyes, conjunctivitis, metal removed from r eye, ototis externa left ear - Renal Hx Renal Disorder: No - Endocrine/Metabolic Hx Endocrine Disorders: No - Hematological/Oncological Hx Blood Disorders: Yes - Integumentary Hx Dermatological Disorder: Yes Other/Comment: multiple scars to legs from old cuts and bites from being in the yard, tatoo rle - Musculoskeletal/Rheumatological Hx Falls: No - Gastrointestinal Hx Gastrointestinal Disorders: Yes (colitis) HX Swallowing Problems: Yes ("a few times I forgot how to swallow" pt stated) Other/Comment: constipation from pain meds pt takes for chronic pack pain/nerve damage, obese - Genitourinary/Gynecological Hx Incontinence: Yes Other/Comment: 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" incontinent wears pads - Psychiatric Hx Anxiety: Yes Hx Depression: Yes Hx Emotional Abuse: No Hx Physical Abuse: No Hx Substance Use: No Other/Comment: 2 ppd smoker - Surgical History Other/Comment: Laminectomy 1999 L4 L5 S1 "failed" as per pt chronic nerve damage and 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", tonsillectomy, tubal 1991 , sebaceous cys removed from left neck - Anesthesia Hx Anesthesia: Yes Hx Anesthesia Reactions: No Hx Malignant Hyperthermia: No - Suicidal Assessment Feels Threatened In Home Enviroment: No Family/Social History Family/Social History: Unknown Family HX Smoking Status: Heavy Smoker > 10 Cigarettes Daily Hx Alcohol Use: No Hx Substance Use: No Hx Substance Use Treatment: No Allergies/Home Meds Allergies/Adverse Reactions: Allergies No Known Allergies Allergy (Verified 11/09/16 18:39) Home Medications: Home Meds Medication Instructions Recorded Confirmed Morphine [Morphine Extended 100 mg PO BID 01/10/15 10/15/17 Release Tab] Bisoprolol/HCTZ [Ziac 10-6.25 mg] 1 tab PO QAM 03/11/15 10/15/17 Tolterodine [Detrol] 2 mg PO BID 03/11/15 10/15/17 Omeprazole [Omeprazole] 40 mg PO DAILY 11/09/16 10/15/17 Oxycodone HCl [Roxicodone] 1 tab PO Q4 PRN 11/09/16 10/15/17 Alprazolam [Xanax] 0.5 mg PO TID PRN 10/15/17 10/15/17 Aspirin [Adult Low Dose Aspirin EC] 81 mg PO DAILY 10/16/17 10/16/17 Clopidogrel [Plavix] 75 mg PO DAILY 10/16/17 10/16/17 Review of Systems - Review of Systems Constitutional: Normal Eyes: Normal ENT: Normal Respiratory: Cough Cardiovascular: absent: Chest Pain, Palpitations, Calf Pain Gastrointestinal: Normal Musculoskeletal: Other (L shoulder pain) Skin: Normal Neurological: Normal Endocrine: Normal Hemo/Lymphatic: Normal Psychiatric: Normal Physical Exam Vital Signs Temp Pulse Resp BP Pulse Ox 01/15/18 11:43 61 18 121/73 94 L 01/15/18 10:26 97.6 F 73 16 121/73 99 Temperature: Afebrile Blood Pressure: Normal Pulse: Regular Respiratory Rate: Normal Appearance: Positive for: Well-Appearing, Non-Toxic, Comfortable Pain Distress: None Mental Status: Positive for: Alert and Oriented X 3 - Systems Exam Head: Present: Atraumatic, Normocephalic. No: Tenderness Pupils: Present: PERRL Extroacular Muscles: Present: EOMI Conjunctiva: Present: Normal Mouth: Present: Moist Mucous Membranes Pharnyx: Present: Normal Respiratory/Chest: Present: Decreased Breath Sounds, Rhonchi. No: Clear to Auscultation, Good Air Exchange, Respiratory Distress, Accessory Muscle Use, Retracting Cardiovascular: Present: Regular Rate and Rhythm, Normal S1, S2 Abdomen: Present: Normal Bowel Sounds. No: Tenderness, Distention, Peritoneal Signs, Rebound, Guarding Back: Present: Midline Tenderness (chronic) Upper Extremity: Present: Normal Inspection (LUE + empty can, inability to abduct beyond 70 degrees, ability to flex, no bicipital tendinitis). No: Edema Lower Extremity: Present: Normal Inspection. No: Edema Neurological: Present: GCS=15, CN II-XII Intact, Speech Normal Skin: Present: Warm, Dry, Rashes, Normal Color Psychiatric: Present: Alert, Oriented x 3 Medical Decision Making ED Course and Treatment: 01/15/18 11:22 Impression: 57 year old female who presents with a 1 week history of L shoulder pain. Rotator cuff tear vs OA Plan: - EKG - L shoulder x-ray 01/15/18 11:28 EKG read: 57 bpm sinus bradycardia, low voltage QRS - RAD Interpretation Radiology Orders: 01/15/18 10:59 SHOULDER LEFT [RAD] Stat Disposition/Present on Arrival - Present on Arrival Any Indicators Present on Arrival: No History of DVT/PE: No History of Uncontrolled Diabetes: No Urinary Catheter: No History of Decub. Ulcer: No History Surgical Site Infection Following: None - Disposition Have Diagnosis and Disposition been Completed?: Yes Diagnosis: Chronic left shoulder pain Disposition: HOME/ ROUTINE Disposition Time: 11:30 Condition: GOOD Discharge Instructions (ExitCare): Shoulder Pain (DC) Additional Instructions: KCAY AKHTAR, thank you for letting us take care of you today. Your provider was Miguel Serna and you were treated for LEFT SHOULDER PAIN. The emergency medical care you received today was directed at your acute symptoms. If you were prescribed any medication, please fill it and take as directed. It may take several days for your symptoms to resolve. Return to the Emergency Department if your symptoms worsen, do not improve, or if you have any other problems. Please contact your doctor or call one of the physicians/clinics you have been referred to that are listed on the Patient Visit Information form that is included in your discharge packet. Bring any paperwork you were given at discharge with you along with any medications you are taking to your follow up visit. Our treatment cannot replace ongoing medical care by a primary care provider outside of the emergency department. Thank you for allowing the [facility] team to be part of your care today. If you had an X-Ray or CT scan: A Radiologist will review the ED reading if any change in treatment is needed we will contact you. If you had a blood, urine, or wound culture: It will take several days for the results, if any change in treatment is needed we will contact you. If you had an STI test: It will take 48 hours for the results. Please call after 1 week if you have not heard back. Referrals: Ubaldo Oconnor MD [Staff Provider] - Follow up with primary Celestino Keene MD [Primary Care Provider] - Follow up with primary Forms: [employer] (Ecuadorean)
[2018-01-15 11:45] VITALS: PULSE 61; RESP 18; O2SAT 94
--- NOTE | 2018-01-15 12:13 | RAD ---
Date of service: 01/15/2018 PROCEDURE: Radiographs of the Left Shoulder HISTORY: L shoulder pain COMPARISON: No prior. FINDINGS: BONES: Normal. No fracture. JOINTS: Normal. Glenohumeral and acromioclavicular joints preserved. No osteoarthritis. SOFT TISSUES: Normal. OTHER FINDINGS: None. IMPRESSION: Normal radiographs of the left shoulder.
--- NOTE | 2018-01-16 10:13 | CARD ---
APPROVED REPORT Date of service: 01/15/2018 EKG Measurement Heart [id number] <Conclusion> Sinus bradycardia Low voltage QRS Septal infarct, age undetermined Abnormal ECG
== END 2018-01-15 12:51 | disposition home or self-care (01) ==
LOC: ED 10:08
DX: G89.29 Other chronic pain (principal); M25.512 Pain in left shoulder; I10 Essential (primary) hypertension; I25.10 Atherosclerotic heart disease of native coronary artery without angina pectoris; F17.210 Nicotine dependence, cigarettes, uncomplicated

== ENCOUNTER 2018-08-22 16:41 | Emergency (ER) | payer MEDICAID ==
[2018-08-22 16:48] VITALS: BMI 35.4
[2018-08-22 16:58] VITALS: TEMP 98.7
[2018-08-22] MEDS ORDERED: Albuterol-Ipratrop 3 mg / 0.5 (3 ml) UD IH STA (17:15)
--- NOTE | 2018-08-22 17:21 | ED PDOC ---
Arrival/HPI - General Chief Complaint: Shortness Of Breath Time Seen by Provider: 08/22/18 16:58 - History of Present Illness Narrative History of Present Illness (Text): 58 yr old female w/ hx of COPD (not on home o2), GERD, CAD p/w throat pain, foreign body sensation and shortness of breath. Pt notes x1.5 weeks of symptoms associated with cough as well. Pt was seen by PMD and given promethazine which improved her symptoms but she notes persistent cough. She was not given antibiotics at that time. She denies any chest pain or pressure. No pleuritic type chest pain. She denies eating any fish or choking on any food within a month. No STONE, leg swelling, PND or orthopnea. No abdominal pain no fever, chills or night sweas no back pain No rash No other complaints. Past Medical History - Past History Past History: Non-Contributing - Infectious Disease Hx of Infectious Diseases: None - Tetanus Immunization Tetanus Immunization: Unknown - Cardiac Hx Cardiac Disorders: Yes Hx Hypertension: Yes Hx Pacemaker: No Hx Peripheral Edema: Yes (ble +1) Other/Comment: leaky valve dx 1 yr ago pt not sure which valve is leaking, chest pain on exertion since 2016, sob diaphoresis, recent episode in [facility] with 9 year old grandaughter - Pulmonary Hx Chronic Obstructive Pulmonary Disease (COPD): Yes Other/Comment: chronic smokers cough - Neurological Hx Neurological Disorder: Yes Other/Comment: passed out at dinner table around constantine, 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 can't feel bottom of both feet, numbness to different areas of ble,from failed back sx 07/28/1999 - HEENT Hx HEENT Disorder: Yes Other/Comment: cellulitis periorbilal r eye, corneal abrasins and multiple scratches from "wood chips from playgrounds, and rubbing eyes, conjunctivitis, metal removed from r eye, ototis externa left ear - Renal Hx Renal Disorder: No - Endocrine/Metabolic Hx Endocrine Disorders: No - Hematological/Oncological Hx Blood Disorders: Yes - Integumentary Hx Dermatological Disorder: Yes Other/Comment: multiple scars to legs from old cuts and bites from being in the yard, tatoo rle - Musculoskeletal/Rheumatological Hx Falls: No - Gastrointestinal Hx Gastrointestinal Disorders: Yes (colitis) HX Swallowing Problems: Yes ("a few times I forgot how to swallow" pt stated) Other/Comment: constipation from pain meds pt takes for chronic pack pain/nerve damage, obese - Genitourinary/Gynecological Hx Incontinence: Yes Other/Comment: 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" incontinent wears pads - Psychiatric Hx Anxiety: Yes Hx Depression: Yes Hx Emotional Abuse: No Hx Physical Abuse: No Hx Substance Use: No Other/Comment: 2 ppd smoker - Surgical History Other/Comment: Laminectomy 1999 L4 L5 S1 "failed" as per pt chronic nerve damage and 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", tonsillectomy, tubal 1991, sebaceous cys removed from left neck - Anesthesia Hx Anesthesia: Yes Hx Anesthesia Reactions: No Hx Malignant Hyperthermia: No - Suicidal Assessment Feels Threatened In Home Enviroment: No Family/Social History Family/Social History: Unknown Family HX Smoking Status: Heavy Smoker > 10 Cigarettes Daily Hx Alcohol Use: No Hx Substance Use: No Hx Substance Use Treatment: No Allergies/Home Meds Allergies/Adverse Reactions: Allergies No Known Allergies Allergy (Verified 11/09/16 18:39) Home Medications: Home Meds Medication Instructions Recorded Confirmed Morphine [Morphine Extended 100 mg PO BID 01/10/15 10/15/17 Release Tab] Bisoprolol/HCTZ [Ziac 10-6.25 mg] 1 tab PO QAM 03/11/15 10/15/17 Tolterodine [Detrol] 2 mg PO BID 03/11/15 10/15/17 Omeprazole 40 mg PO DAILY 11/09/16 10/15/17 Oxycodone HCl [Roxicodone] 1 tab PO Q4 PRN 11/09/16 10/15/17 Alprazolam [Xanax] 0.5 mg PO TID PRN 10/15/17 10/15/17 Aspirin [Adult Low Dose Aspirin EC] 81 mg PO DAILY 10/16/17 10/16/17 Clopidogrel [Plavix] 75 mg PO DAILY 10/16/17 10/16/17 Review of Systems - Review of Systems Constitutional: absent: Fatigue, Weight Change, Fevers, Night Sweats Eyes: absent: Vision Changes, Photophobia, Eye Pain ENT: Other (foreign body sensation near trachea/ radiating upward from stomach). absent: Hearing Changes, Tinnitus, TMJ Pain, Epistaxis Respiratory: SOB, Cough. absent: Sputum, Wheezing Cardiovascular: absent: Chest Pain, Palpitations, Edema Gastrointestinal: absent: Abdominal Pain, Stool Changes, Constipation, Diarrhea, Nausea, Vomiting, Hematochezia, Hematemesis Genitourinary Female: absent: Dysuria, Frequency Musculoskeletal: absent: Arthralgias, Back Pain, Neck Pain Skin: absent: Rash, Pruritis, Skin Lesions Neurological: absent: Headache, Dizziness Physical Exam Vital Signs Reviewed: Yes Vital Signs Temp Pulse Resp BP Pulse Ox 08/22/18 16:58 98.7 F 70 18 104/56 L 95 Temperature: Afebrile Pulse: Regular Respiratory Rate: Normal Appearance: Positive for: Well-Appearing, Non-Toxic, Comfortable Pain Distress: None Mental Status: Positive for: Alert and Oriented X 3 - Systems Exam Head: Present: Atraumatic Pupils: Present: PERRL Extroacular Muscles: Present: EOMI Conjunctiva: Present: Normal Mouth: Present: Moist Mucous Membranes Pharnyx: Present: Normal. No: ERYTHEMA, EXUDATE, TONSILS ENLARGED, Peritonsilar Swelling, Uvular Deviation, Muffled/Hoarse Voice, Strider Nose (External): Present: Atraumatic. No: Abrasion Nose (Internal): Present: Normal Inspection, Moist Neck: Present: Normal Range of Motion, Trachea Midline. No: Meningeal Signs, MIDLINE TENDERNESS, JVD, Lymphadenopathy, Bruit Respiratory/Chest: Present: Clear to Auscultation, Good Air Exchange, Wheezes (mild at bases). No: Respiratory Distress, Decreased Breath Sounds, Rales, Retracting, Rhonchi, Tachypneic Cardiovascular: Present: Regular Rate and Rhythm, Normal S1, S2, Peripheal Pulses Present. No: Murmurs, Irregular Rhythm, Tachycardic, Bradycardic, Rub, Gallop, Muffled Abdomen: Present: Normal Bowel Sounds. No: Tenderness, Distention, Peritoneal Signs, Rebound, Guarding, McBurney's Point Tender, Hernias Back: Present: Normal Inspection. No: CVA Tenderness, Midline Tenderness Upper Extremity: Present: Normal Inspection, Normal ROM, NORMAL PULSES, Neurovascularly Intact, Capillary Refill < 2s. No: Cyanosis, Edema, Deformity Lower Extremity: Present: Normal Inspection, NORMAL PULSES, Neurovascularly Intact. No: Edema, CALF TENDERNESS Neurological: Present: GCS=15, Speech Normal, Motor Func Grossly Intact, Gait Normal Skin: Present: Warm, Dry, Normal Color. No: Rashes Psychiatric: Present: Alert, Oriented x 3, Normal Insight Medical Decision Making ED Course and Treatment: 58 yr old female w/ hx of COPD, CAD p/w cough, foreign body sensation, sob. No edema / orthopnea / pnd or STONE. No leg swelling. No recent trauma, fall or surgery. No hx of blood clots. No chest pain. Pt notes cough, non-productive w/ sob everytime she coughs. No abdominal pain or GI or complaints. Unlikely FB as pt denies any recent choking episodes. Lungs w/ mild wheezes at the bases. No chest pain likely bronchitis w/ COPD exacerbation w/ mild GERD. EK, NSR, no stemi 08/22/18 19:03 Imaging, labs unremarkable pt notes improvement in sensation- now completely gone no shortness of breath per pt: no wheezes on exam repeat exam w/ uvula midline, no meningeal signs, no throat swelling, midline trach, clear phonation w/ out hot potatoe voice. tolerating solids and clears well. abdomen remains non-ttp clear for d/c home with return indications f/u pt agreeable to plan - RAD Interpretation Radiology Orders: 08/22/18 17:15 CHEST TWO VIEWS (PA/LAT) [RAD] Stat - Medication Orders Current Medication Orders: Albuterol/Ipratropium (Duoneb 3 Mg/0.5 Mg (3 Ml) Ud) 3 ml IH STAT STA Stop: 08/22/18 17:16 Famotidine (Pepcid) 20 mg IVP STAT STA Stop: 08/22/18 17:17 Methylprednisolone (Solu-Medrol) 125 mg IVP STAT STA Stop: 08/22/18 17:16 Disposition/Present on Arrival - Present on Arrival Any Indicators Present on Arrival: No History of DVT/PE: No History of Uncontrolled Diabetes: No Urinary Catheter: No History of Decub. Ulcer: No History Surgical Site Infection Following: None - Disposition Have Diagnosis and Disposition been Completed?: Yes Diagnosis: COPD (chronic obstructive pulmonary disease), Bronchitis Disposition: HOME/ ROUTINE Disposition Time: 19:08 Patient Problems: Current Active Problems Problem Status Onset COPD (chronic obstructive pulmonary disease) Acute Bronchitis Acute Condition: STABLE Discharge Instructions (ExitCare): Acute Bronchitis, Exacerbation of COPD (DC) Additional Instructions: KACY CURTIS, thank you for letting us take care of you today. Your provider was Miguel Serna and you were treated for SOB/THROAT PROBLEMS. The emergency medical care you received today was directed at your acute symptoms. If you were prescribed any medication, please fill it and take as directed. It may take several days for your symptoms to resolve. Return to the Emergency Department if your symptoms worsen, do not improve, or if you have any other problems. Please contact your doctor or call one of the physicians/clinics you have been referred to that are listed on the Patient Visit Information form that is included in your discharge packet. Bring any paperwork you were given at discharge with you along with any medications you are taking to your follow up visit. Our treatment cannot replace ongoing medical care by a primary care provider outside of the emergency department. Thank you for allowing the [facility] team to be part of your care today. If you had an X-Ray or CT scan: A Radiologist will review the ED reading if any change in treatment is needed we will contact you. If you had a blood, urine, or wound culture: It will take several days for the results, if any change in treatment is needed we will contact you. If you had an STI test: It will take 48 hours for the results. Please call after 1 week if you have not heard back. Prescriptions: Albuterol HFA [Ventolin HFA 90 mcg/actuation (8 g)] 2 puff IH [id number] PRN 90 Days #1 puff PRN Reason: Shortness Of Breath Azithromycin [Z-Chris] 250 mg PO DAILY #6 tab predniSONE [Prednisone] 40 mg PO DAILY 5 Days #10 tab Referrals: [facility] [Outside] - Follow up with primary [facility] [Outside] - Follow up with primary [facility] [Outside] - Follow up with primary Celestino Haque MD [Family Provider] - Follow up with primary Von Rosen MD [Staff Provider] - Follow up with primary Forms: [facility] (Swedish)
[2018-08-22 17:35] LABS: BASO # 0.02 K/mm3 (0.0-2.0); BASO % 0.2 % (0.0-3.0); EOS # 0.1 (0.0-0.7); EOS % 0.8 % (1.5-5.0); LYMPH # 1.5 (1.2-3.4); LYMPH % 16.6 % (22.0-35.0); MEAN CELL VOLUME 97.4 fl (80.0-105.0); MEAN CORPUSCULAR HEMOGLOBIN 32.7 pg (25.0-35.0); MEAN CORPUSCULAR HGB CONC 33.6 g/dl (31.0-37.0); MEAN PLATELET VOLUME 10.2 fl (7.0-11.0); MONO # 0.6 (0.1-0.6); MONO % 7.1 % (1.0-6.0); RBC 4.59 10^6/uL (3.5-6.1); RED CELL DISTRIBUTION WIDTH 13.9 % (11.5-14.5); WHITE BLOOD COUNT 9.1 10^3/uL (4.5-11.0)
[2018-08-22 17:45] LABS: ALB/GLOB RATIO 1.2 (1.1-1.8)
[2018-08-22 17:47] LABS: ALBUMIN 3.7 g/dL (3.0-4.8); ALT/SGPT 22 U/L (7-56); AST/SGOT 21 U/L (14-36); BLOOD UREA NITROGEN 8 mg/dL (7-21); CALCIUM 9.6 mg/dL (8.4-10.5); GFR NON-AFRICAN AMERICAN > 60
[2018-08-22 18:03] LABS: TROPONIN I < 0.01 ng/mL
--- NOTE | 2018-08-22 18:22 | RAD ---
HISTORY: cough COMPARISON: Chest x-ray performed 10/15/17 TECHNIQUE: Chest PA and lateral, 2 views FINDINGS: LUNGS: Interstitial markings may be chronic; mild superimposed infection or edema not excluded. No focal consolidation. Please note that chest x-ray has limited sensitivity for the detection of pulmonary masses. PLEURA: No significant pleural effusion identified. No definite pneumothorax . CARDIOVASCULAR: Heart size appears within normal limits. Atherosclerotic calcifications of the aorta. OSSEOUS STRUCTURES: No acute osseous abnormality identified. VISUALIZED UPPER ABDOMEN: Unremarkable. OTHER FINDINGS: None. IMPRESSION: Interstitial markings may be chronic; mild superimposed infection or edema not excluded.
[2018-08-22 19:15] VITALS: O2SAT 96
--- NOTE | 2018-08-22 19:19 | CARD ---
APPROVED REPORT Date of service: 08/22/2018 EKG Measurement Heart [id number] <Conclusion> Normal sinus rhythm Possible Left atrial enlargement Slow R wave progression V1-2 Abnormal ECG
[2018-08-22 19:34] VITALS: BP 112/73; PULSE 78; RESP 16
== END 2018-08-22 19:30 | disposition home or self-care (01) ==
LOC: ED 16:41
DX: J44.9 Chronic obstructive pulmonary disease, unspecified (principal); J40 Bronchitis, not specified as acute or chronic; F17.210 Nicotine dependence, cigarettes, uncomplicated; I10 Essential (primary) hypertension
CPT/HCPCS: 71046; 80053; 84484; 85025; 93005; 96374; 96375; 99284; J2930